=== PATIENT | male | born 1980 | race Two or more races ===

== ENCOUNTER 2022-08-16 09:37 | Outpatient (CLI) | payer OTHER | END 2022-08-16 09:50 | disposition home or self-care (01) | LOC: RAD 09:37 | DX: M25.562 Pain in left knee (principal); M21.769 Unequal limb length (acquired), unspecified tibia and fibula ==

== ENCOUNTER 2022-08-18 09:53 | Outpatient (CLI) | payer OTHER | END 2022-08-18 10:07 | disposition home or self-care (01) | LOC: SONOGRAMA 09:53 | PROVIDERS: ATTEND Physical Medicine & Rehabilitation | DX: M25.521 Pain in right elbow (principal) ==

== ENCOUNTER 2024-12-02 14:25 | Outpatient (CLI) | payer OTHER | END 2024-12-02 14:40 | disposition home or self-care (01) | LOC: MRI 14:25 | PROVIDERS: ATTEND Internal Medicine | DX: M51.360 Other intervertebral disc degeneration, lumbar region with discogenic back pain only (principal) | CPT/HCPCS: 72148 ==